=== PATIENT | male | born 1975 | race African-American/Black ===

== ENCOUNTER 2017-10-12 09:29 | Emergency (ER) | payer MEDICAID ==
[~2017-10-12] VITALS: Ht 182.9 cm; Wt 100.0 kg
[2017-10-12] MEDS ORDERED: KETOROLAC 60MG/2ML VIAL IM ONE (15:45)
[2017-10-12] MEDS ORDERED: CYCLOBENZAPRINE 10MG TABLET PO ONE (15:45)
[2017-10-12 15:57] VITALS: BP 134/89
== END 2017-10-12 17:35 | disposition home or self-care (01) ==
LOC: ER 10:33
DX: M54.2 Cervicalgia (principal); M54.5 Low back pain; F17.200 Nicotine dependence, unspecified, uncomplicated; V43.52XA Car driver injured in collision with other type car in traffic accident, initial encounter
CPT/HCPCS: 72100; 72125; 99284; J1885